=== PATIENT | male | born 1990 | race Caucasian/White ===

== ENCOUNTER 2016-07-17 23:07 | Emergency (ER) ==
[2016-07-17 23:18] VITALS: BP 146/99
--- NOTE | 2016-07-17 23:42 | PROVIDER DOCUMENTATION ---
HPI-Rash/Wound/ReCheck - General Chief Complaint: Allergic Reaction Stated Complaint: ALLERGIC REACTION Time Seen by Provider: 07/17/16 23:25 Source: patient, family - History of Present Illness-Dermatology Nature of Presenting Problem: 26 y/o WM c/o allergic reaction to amoxicillin after taking it. Pt states that he took amoxicillin 45 minutes [employer]. States he feels itchy and reports that his throat feels funny. Denies any other sxs. Review of Systems - Adult - REVIEW OF SYSTEMS - ADULT Constitutional: reports: no symptoms reported. denies: chills, fever Eyes: reports: no symptoms reported. denies: blurred vision, double vision Ears, Nose, Mouth & Throat: reports: see HPI, other. denies: ear pain, nose pain Cardiovascular: reports: no symptoms reported. denies: chest pain, palpitations Respiratory: reports: no symptoms reported. denies: dyspnea on exertion, shortness of breath Gastrointestinal: reports: no symptoms reported. denies: nausea, vomiting Genitourinary: reports: no symptoms reported. denies: dysuria, frequency Musculoskeletal: reports: no symptoms reported. denies: joint pain, joint swelling Integumentary: reports: see HPI, itching. denies: nail changes Neurological: reports: no symptoms reported. denies: numbness, paresthesia Psychiatric: reports: no symptoms reported Endocrine: reports: no symptoms reported. denies: cold intolerance, heat intolerance Hematologic/Lymphatic: reports: no symptoms reported. denies: easy bruising, prolonged bleeding Allergic/Immunologic: reports: no symptoms reported. denies: allergic reactions All Other Systems: Reviewed and Negative Past History - Adult - PAST MEDICAL HISTORY-ADULT Review of Records: reports: Nursing Assessment Review, Medications Reviewed Physical Exam-General - PHYSICAL EXAM-ADULT Initial Vital Signs Reviewed: Yes - CONSTITUTIONAL General Appearance: alert, mild distress - HEAD, EARS, NOSE, MOUTH & THROAT HENMT: normocephalic/atraumatic - RESPIRATORY Respiratory: no respiratory distress - MUSCULOSKELETAL Extremity: normal gait - NEUROLOGIC Neurologic: negative: aphasia - PSYCHIATRIC Psych/Mental Status: normal mood/affect Progress - PLAN OF CARE/RESULTS Progress/Plan/Lab Results: Vital Signs Temp Pulse Resp BP Pulse Ox 07/17/16 23:17 98.9 F 96 H 18 146/99 99 PRURITUS, UNSPECIFIED (07/17/16) ADVERSE EFFECT OF PENICILLINS, INITIAL ENCOUNTER (07/17/16) Was pulled from triage room prior to full hx and PE; pt eloped stating that he felt better. Departure - Departure Time of Disposition Order: 23:42 DIAGNOSIS: Itching, Allergy to amoxicillin Disposition: ELOPEMENT 07 Certified Medical Emergency: Emergent Condition: Stable Referrals: None,PCP [Primary Care Provider] - Attestation - Physician/ RUI Attestation Patient care was provided by Advanced Practice Provider:: Yes Advanced Practice Provider:: Chaparrita Joseph Advanced Practice Provider documentation review:: The Mid-level provider documentation, treatment plan and medical decision making was reviewed by the physician who agrees with all treatment and medical decision making by the MLP.
== END 2016-07-17 23:25 | disposition left against medical advice (07) ==
LOC: ED 23:07
DX: T36.0X5A Adverse effect of penicillins, initial encounter (principal); L29.9 Pruritus, unspecified